=== PATIENT | female | born 1960 | race Caucasian/White ===

== ENCOUNTER 2016-09-30 13:13 | Observation (INO) | payer MEDICARE, MEDICAID ==
[2016-09-30] VITALS (8 sets, daily range): BP systolic 100–120; BP diastolic 49–73; PULSE 60–96; RESP 16–18; O2SAT 96–99
[~2016-09-30] VITALS: Ht 157.5 cm; Wt 85.2 kg
[2016-09-30] MEDS ORDERED: 0.9% Sodium Chloride 1,000 ML IV ONE (13:33)
--- NOTE | 2016-09-30 13:37 | ED.REPORT ---
HPI-General Illness Date of Service Sep 30, 2016 ED Provider: Hiral Weeks MD Patient is a 56 year old female with a history of diabetes who presents to the ED via EMS due to two syncopal episodes just prior to arrival. Per EMS, the patient was playing softball and then when they were trying to get a line put in her, she had another syncopal episode while in supine position. EMS reports that the patient did not have any post-ictal movements after the episode. The patient complains of abdominal pain, nausea and headache. She denies chest pain , shortness of breath, dizziness or lightheadedness. The patient states that her last bowel movement was a week ago but this is normal for her. Nursing Notes Stated Complaint: SYNCOPE Chief Complaint: Dysrhythmia/Cardiac Nursing Notes Reviewed: Yes Allergies: Coded Allergies: No Known Allergies (Unverified , 09/30/16) General Time Seen by MD: 13:29 Chief Complaint Other (syncope) Hx Obtained From: Patient Arrived By: Ambulance Sudden in Onset?: Yes Onset Occurred: Just prior to arrival Location: : Abdomen Quality: Painful Severity: Current: Moderate Similar Sx Previous: No Past Medical History Past Medical History Reports: Diabetes mellitus Smoking History Unknown if Ever Smoker Ambulatory Status Independent Review of Systems Full Review of Systems Constitutional: Denies: Chills, Fever Respiratory: Denies: Non-productive cough, Shortness of breath Cardiovascular: Denies: Chest pain GI: Reports: Abdominal pain, Nausea Skin: Denies Itching, Denies Rash Neurologic: Reports: Headache, Syncope, Denies: Dizziness, Lightheaded, Numbness, Weakness Complete sys rev & neg: except as marked. Physical Exam Vital Signs Vital Signs Date Time Temp Pulse Resp B/P Pulse Ox O2 Delivery O2 Flow Rate FiO2 09/30/16 13:37 36.8 96 18 120/62 98 Room Air Initial VS: Reviewed General/Constitutional: Awake, Alert Head / Eyes: Atraumatic, Normocephalic, PERRL, EOMI Neck: Atraumatic, Supple, Full range of motion Respiratory / Chest: Atraumatic, Breath sounds NL, Breath sounds = bilat, No respiratory distress CARDIO: rapid heart rate with occasional irregularities Abdomen: Atraumatic, Soft, BS normoactive Bowel Sounds / Distention: Positive: Distention mild Skin: Atraumatic, Color NL, No rash, Warm, Dry Neurologic: Oriented X3, Speech NL, No motor deficits, No sensory deficits Psychiatric: Affect NL, Mood NL Interpretation & Diagnostics Lab Results Interpretation Result Diagram: 09/30/16 1340 09/30/16 1340 Test 09/30/16 13:40 09/30/16 15:23 White Blood Count 6.9th/mm3 (3.8-10.1) Red Blood Count 4.87mil/mm3 (3.90-5.20) Hemoglobin 13.8g/dL (12.0-15.6) Hematocrit 42.8% (35.0-46.0) Mean Corpuscular Volume 87.9fL (81-100) Mean Corpuscular Hemoglobin 28.3pg (27.0-35.0) Mean Corpuscular Hemoglobin Concent 32.2% (32.0-37.0) Red Cell Distribution Width 14.3% (12.3-15.4) Platelet Count 210bil/L (150-400) Neutrophils (%) (Auto) 69.2% (40-74) Lymphocytes (%) (Auto) 22.6% (14-46) Monocytes (%) (Auto) 6.4% (4-12) Eosinophils (%) (Auto) 1.4% (0-5) Basophils (%) (Auto) 0.1% (0-3) Sodium Level 141mEq/L (134-144) Potassium Level 4.1mEq/L (3.5-5.2) Chloride Level 105mEq/L (97-108) Carbon Dioxide Level 20mmol/L (18-29) Blood Urea Nitrogen 19mg/dL (6-24) Creatinine 1.11mg/dL (0.57-1.00) Estimat Glomerular Filtration Rate 73mL/min (>59) Glucose Level 94mg/dL (60-99) Calcium Level 9.2mg/dL (8.5-10.1) Magnesium Level 1.8mg/dL (1.6-2.6) Total Bilirubin 0.2mg/dL (0.0-1.2) Aspartate Amino Transf (AST/SGOT) 23U/L (0-50) Alanine Aminotransferase (ALT/SGPT) 17U/L (0-32) Alkaline Phosphatase 122U/L (25-150) Troponin T < 0.010ug/L (0.0-0.011) Pro-B-Type Natriuretic Peptide 127.9pg/mL (0-287) Total Protein 7.7g/dL (6.4-8.4) Albumin 4.3g/dL (3.4-5.0) Hold Urine Received (Received) ECG Interpretation ECG Interpretation: low voltage, precordial leads abnormal R-wave progression, early transition borderline T abnormalities, diffuse leads Time: 14:30 Interpreted by: ED physician Normal ECG Interpretation: Normal rate (74), Normal sinus rhythm X-Ray Chest Interpretation Chest Xray Interpretation: IMPRESSION: No acute disease Dictated by: Jose Alfredo Gomez M.D. on 09/30/2016 at 15:01 Approved by: Jose Alfredo Gomez M.D. on 09/30/2016 at 15:03 Interpretation / Wet Read by: Interpret - Radiologist Re-Eval/Medical Decision Med Decision/Clinical Course 56-year-old woman who is participating [employer] today presumed diagnosis of Down syndrome. Doing very well got hot felt some heart palpitations. Had a syncopal episode. Medics were called there was no post ictal phase there is no describe seizure-like activity. Upon arrival medics noted another 20 to 32nd syncopal episode while she was supine. She was not hooked up to monitors at the time blood sugar was 95. Was transported for further evaluation. She is having multiple PVCs but she is aware that she has had these before Time of Eval: 14:54 Re-Evaluation/Progress Note: Discussed plan for admit. Patient understands and agrees to plan. All questions were addressed. Consultation : Consulted With: Hospitalist Call Returned at: 15:46 Marine Equipment Test Engineer: Agrees with eval, Agrees with plan, Accepts admit Note: Dr De Jesus Counseled Regarding: Diagnosis, Lab results, Need for admission Discharge & Departure Primary Impression: Syncope Syncope type: unspecified Qualified Code: R55 - Syncope and collapse Disposition: ADMITTED TO HOSPITAL Discharge Condition All VS Reviewed: Yes Condition: Stable Referrals: OTHER,PHYSICIAN (PCP) (Family) Scribe Attestation Portions of this note were transcribed by Lolis Ludwig. I, Dr. Weeks personally performed the history, physical exam and medical decision-making; I reviewed and confirmed the accuracy of the information in the transcribed note. Signed: Sonja Cisneros, 09/30/2016 Hiral Weeks MD Sep 30, 2016 13:36 CORONA BANEGAS Sep 30, 2016 13:43 Nazanin Ludwig Sep 30, 2016 15:08
[2016-09-30 13:52] LABS: BASOPHILS % (AUTO) 0.1 % (0-3); EOSINOPHILS % (AUTO) 1.4 % (0-5); MONOCYTES % (AUTO) 6.4 % (4-12); Mean Corpuscular Hemoglobin 28.3 pg (27.0-35.0); Mean Corpuscular Volume 87.9 fL (81-100); NEUTROPHILS % (AUTO) 69.2 % (40-74); Platelet Count 210 bil/L (150-400)
[2016-09-30 14:06] LABS: TROPONIN T < 0.010 ug/L (0.0-0.011)
[2016-09-30 14:14] LABS: Magnesium 1.8 mg/dL (1.6-2.6)
--- NOTE | 2016-09-30 15:04 | DRSVH ---
PROCEDURE: X-RAY CHEST ONE VIEW, PORTABLE ([id number]) INDICATIONS: syncope TECHNIQUE: One view of the chest was acquired. COMPARISON: None. FINDINGS: Surgical changes and devices: None. Lungs and pleura: No pleural effusions or pneumothorax. Lungs are clear. Mediastinum: Mediastinal contours appear normal. Heart size is normal. Bones and chest wall: No suspicious bony lesions. Overlying soft tissues appear unremarkable. IMPRESSION: No acute disease Dictated by: Jose Alfredo Gomez M.D. on 09/30/2016 at 15:01 Approved by: Jose Alfredo Gomez M.D. on 09/30/2016 at 15:03
[2016-09-30] MEDS: 0.9% Sodium Chloride 1,000 ML IV SCH (15:36)
[2016-09-30] MEDS ORDERED: Ondansetron 2 mg/mL 2 mL Inj IVPUSH PRN (15:40)
[2016-09-30] MEDS ORDERED: Sodium Biphos-Phos 133 mL Enema RECTAL PRN (16:15)
[2016-09-30] MEDS ORDERED: Sodium Biphos-Phos 133 mL Enema RECTAL ONE (16:15)
--- NOTE | 2016-09-30 16:23 | PCM.HPMED ---
Subjective Date of Service Sep 30, 2016 Primary Provider: Admitting Physician: Malik De Jesus MD Primary Care Physician: Candelario Flores MD Attending Physician: Malik De Jesus MD Chief Complaint: 2 syncopal episodes History of Present Illness: 56-year-old female with known seizure disorder not on AEDs, diabetes on insulin , depression, anxiety disorder, chronic PVCs, IBS, presenting after episode of syncope today. 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 While she was playing, patient suddenly had blackout. Patient denied having chest pain or difficulty breathing, dizziness, palpitation prior to syncope. 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 Patient remembered she fell, they put her at the bench. patient noticed neck pain and diffuse headache, also noticed abdominal cramping and nausea. Did not vomit. He denied having urination, tongue bite, defecation. While en route to hospital. EMS reported 20-30s sec of loss of consciousness without seizure activities while on supine position. ROS: Patient was on the a lot of stress recently as her mother is critically ill , in ICU at outside hospital. Patient also has chronic constipation, contributed from IBS. last BM one week ago. pt denied fever, chills, cough, sputum. Of note, patient follows at [facility] for seizure d/o. last seen 3days ago discussed about last seizure episode in August she had.However , pt was not recommended to take AEDs. cannot remember the details what his recommendation was. pt also had breakfast this morning, injected her humalog this AM, reported glucose was 96 at the scene. Patient has a good appetite but on a diet trying to her weight, lost 20lbs since may deliberately. ED VS stable blood pressure 120s, 96, 18, 98% on RA, afebrile. labs were unremarkable. EKG showed NSR. pt was given 1liter bolus Review of Systems: Pertinent positives as noted in history of present illness. All other systems were reviewed and are negative Allergies Coded Allergies: No Known Allergies (Unverified , 09/30/16) Home Medications Humalog 5-4 units twice a day Medications for depression and anxiety and sleep PMH As described above in history of present illness Surgical History Cholecystectomy Tubal ligation Family History Father had colon cancer Mother had hypertension Social History Smoking Status: Unknown if Ever Smoker Additional Information Probably lives with ex-, denied any toxic habits Exam Vital Signs Vital Sign - Last Date Time Temp Pulse Resp B/P Pulse Ox O2 Delivery O2 Flow Rate FiO2 09/30/16 13:37 36.8 96 18 120/62 98 Room Air Exam NAD, comfortably laying down on the bed no JVD, MMM, no LAD RRR, nl s1, s2 no mrg CTAB, no w,c S,ND,NT,normoactive BS+ warm, no edema, pulses 2/2 Neuro:speech coherent, fluent, AAOx3 PERRLA, EOMI, symmetric face, no uvulae tongue deviation, able shrug shoulders equally able rotate neck equally on both sides motor 5/5 throughout, sensory intact to dull touch Lab and Diagnostics Result Diagram: 09/30/16 1340 09/30/16 1340 Assessment & Plan Acute, active Witnessed syncopal episode x2, POA, although patient reported seizure-like activities, which was contributed to second episode of syncope. It is possible that patient had a syncope or brief seizure episode from heat stroke given hx pt temp mildly elevated. Patient only has history of PVCs but no higher degree of blocks or ventricular arrhythmias. No cardiac rosales done in the past. Patient was not hypoglycemic or hyperglycemic. -will monitor in house, neurocheck q2h-4h, -telemetry, get TTE to see valvular dz -IVF 100cc/hr, -carotid US -trend trop one more. IBS-C, POA, no BM>1wk, active cramps from severe ileus -aggressive bowel regimen, enema as needed -follow up with regular GI on d/c Chronic, stable DM, glc qhs, [id number] qhs for now depression, anxiety d/o, resume home med ?seizure d/o, will get more information from if pt remains in house until Sunday Dispo: Patient is admitted under observation status with expectation that she will be discharged within 24-48 hours, diet:general dvt ppx:LMWH Full code Time spent 65min Malik De Jesus MD Sep 30, 2016 16:23
[2016-09-30] MEDS: Polyethylene Glycol (PEG) 17 Gm Powder PO SCH ×2 (18:12→20:30)
--- NOTE | 2016-09-30 18:48 | NUR ---
Transfer/Bowel Medication Pt. arrived to room 3001 [facility] from the ER at about 1700, report given by telephone by Amrita Chavez RN. Pt. arrived in no apparent distress and ambulated to her bed. Pt. stated feeling some slight dizziness and c/o headache that had been persistent HOSPITALITY RECRUITER. PRN Tylenol was given and upon reassessment Pt. stated headache decreasing. Admit interventions completed except med. reconciliation, will let next RN shift know. Pt. did have a BM after the fleet enema was given, hard and large, using BSC with SBA.
--- NOTE | 2016-09-30 19:00 | DRSVH ---
PROCEDURE: X-RAY ABDOMEN, ONE VIEW ([id number]) INDICATIONS: ileus TECHNIQUE: One view of the abdomen acquired. COMPARISON: None. FINDINGS: Surgical changes and devices: None. Bowel: Bowel gas pattern is nonobstructive. Moderate stool is present Soft tissues: No suspicious abdominal calcifications. Visualized solid organ contours appear normal in size. Bones: No suspicious bony lesions. IMPRESSION: No bowel obstruction. Moderate stool Dictated by: Jose Alfredo Gomez M.D. on 09/30/2016 at 18:57 Approved by: Jose Alfredo Gomez M.D. on 09/30/2016 at 18:58
--- NOTE | 2016-09-30 19:56 | NUR ---
DEANA explained and signed. Copy of DEANA and Medicare self administered medication information given to pt.
[2016-09-30] MEDS ORDERED: Insulin GLARgine 100 Unit/mL Syringe SUBQ SCH (21:00)
[2016-09-30] MEDS ORDERED: LORA-303 PO (21:50)
[2016-09-30] MEDS ORDERED: TRAZ300T3 PO (21:50)
[2016-09-30] MEDS ORDERED: LORazepam 1 mg Tablet PO PRN (21:55)
[2016-10-01] VITALS (7 sets, daily range): BP systolic 110–137; BP diastolic 65–79; PULSE 60–90; RESP 16–18; O2SAT 95–97
[2016-10-01] MEDS: 0.9% Sodium Chloride 1,000 ML IV SCH (03:28)
[2016-10-01] MEDS: Polyethylene Glycol (PEG) 17 Gm Powder PO SCH (07:43)
[2016-10-01] MEDS ORDERED: LORazepam 1 mg Tablet PO PRN (10:20)
--- NOTE | 2016-10-01 11:19 | PCM.DIMED ---
Discharge Instructions Date of Service Oct 01, 2016 Dates of Hospitalization Sep 30, 2016 at 15:26 Discharge Diagnosis Discharge Diagnosis Probable syncopal episode in the setting of heat stroke, possible orthostatic hypotension, dehydration Diet Discharge Diet: No restrictions Activity Discharge Activity: No restrictions Call your provider Call your provider for: Shortness of breath Patient Instructions Patient Instructions You were hospitalized after the episode of syncope. Although there was a concern for seizures. There was no seizure activity observed during the hospitalization. Further workups didn't reveal any abnormalities on your heart functions and irregular heart rhythms which could trigger your episode. Please follow-up with Neurologist if this episode happened again Please hydrate yourself enough with water especially prior to vigorous exercise Please follow up with your Primary doctor on this Sunday as scheduled. Please request for Echocardiogram and Carotid Ultrasound result from medical record department Follow-up Provider: Kelechi Richardson MD Follow-up with PCP in: 4 weeks Provider: Candelario Flores MD Follow-up in: 2 weeks Malik De Jesus MD Oct 01, 2016 11:19
--- NOTE | 2016-10-01 14:12 | NUR ---
Social Work-initial assessment/readiness for discharge: Data:See initial assessment. Pt is a 56 y/o female who was admitted on 09/30/16 for syncope per H&P. Pt's insurance is [facility] and [facility] and PCP is Earl Flores MD. EMR Reviewed. Pt's readmission score is 3-high risk. SW met with pt at bedside, SW role explained. Pt is alert and oriented x3. Pt resides at home with her ex- in an apartment in [place]. Pt does not drive and uses a fww at baseline. pt has no HH or SNF history. Pt has [facility] caregivers a couple times a week, but pt cannot remember her CM's name. Pt has no detention care insurance or VA benefits. SW discussed DPOA/ advanced directive, pt has not completed this, information provided. SW provided pt with discharge planning checklist booklet and encouraged pt to call with any questions, phone number provided. Pt confirms her family will provide transport home. No anticipated discharge needs. SW will continue to follow if needs arise. Assessment:pt who is independent at baseline. Plan:Pt to discharge home when medically stable via POV. No anticipated discharge needs. SW will continue to follow if needs arise. RASHEED Diamond Addendum: 10/01/16 at 1415 by VINEET GONZALES Amended: Links added.
--- NOTE | 2016-10-01 16:36 | PCM.DC.MED ---
Discharge Summary Date of Service Oct 01, 2016 Dates of Hospitalization Date of Hospital Admission Sep 30, 2016 at 15:26 Date of Discharge: Oct 01, 2016 Providers: Admitting Physician: Malik De Jesus MD Primary Care Physician: Candelario Flores MD Attending Physician: Malik De Jesus MD Diagnosis at Time of Discharge Diagnosis at Time of Discharge acute dx Probable syncopal episode in the setting of heat stroke, possible orthostatic hypotension, dehydration IBS-C Chronic dx DM Depression, anxiety d/o questionable seizure d/o Procedures XRay, CTs & MRIs PROCEDURE: X-RAY ABDOMEN, ONE VIEW ([id number]) INDICATIONS: ileus TECHNIQUE: One view of the abdomen acquired. COMPARISON: None. FINDINGS: Surgical changes and devices: None. Bowel: Bowel gas pattern is nonobstructive. Moderate stool is present Soft tissues: No suspicious abdominal calcifications. Visualized solid organ contours appear normal in size. Bones: No suspicious bony lesions. IMPRESSION: No bowel obstruction. Moderate stool Dictated by: Jose Alfredo Gomez M.D. on 09/30/2016 at 18:57 Approved by: Jose Alfredo Gomez M.D. on 09/30/2016 at 18:58 Brief History HPI obtained on 09/30 56-year-old female with known seizure disorder not on AEDs, diabetes on insulin , depression, anxiety disorder, chronic PVCs, IBS, presenting after episode of syncope today. 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 While she was playing, patient suddenly had blackout. Patient denied having chest pain or difficulty breathing, dizziness, palpitation prior to syncope. As per the patient, patient was told that she had 40 seconds of "seizure", temperature was 99.2F per her cricket coach. Patient remembered she fell, they put her at the bench. patient noticed neck pain and diffuse headache, also noticed abdominal cramping and nausea. Did not vomit. He denied having urination, tongue bite, defecation. While en route to hospital. EMS reported 20-30s sec of loss of consciousness without seizure activities while on supine position. ROS: Patient was on the a lot of stress recently as her mother is critically ill , in ICU at outside hospital. Patient also has chronic constipation, contributed from IBS. last BM one week ago. pt denied fever, chills, cough, sputum. Of note, patient follows at [facility], [place] for seizure d/o. last seen 3days ago discussed about last seizure episode in August she had.However , pt was not recommended to take AEDs. cannot remember the details what his recommendation was. pt also had breakfast this morning, injected her humalog this AM, reported glucose was 96 at the scene. Patient has a good appetite but on a diet trying to her weight, lost 20lbs since may deliberately. ED VS stable blood pressure 120s, 96, 18, 98% on RA, afebrile. labs were unremarkable. EKG showed NSR. pt was given 1liter bolus Hospital Course Acute dx Witnessed syncopal episode x2, pt was monitored closely during hospitalization. No episode of seizures or syncope was noted. Patient underwent echocardiogram and carotid ultrasound. Although patient reported seizure-like activities, it was unlikely seizures, it' s possible that patient had a syncope from heat stroke given hx pt temp mildly elevated and also be associated with orthostatic hypotension and dehydration. Patient only has history of PVCs but no higher degree of blocks or ventricular arrhythmias. Telemetry showed no episodes of concerning arrhythmias. Patient was also not hypoglycemic or hyperglycemic. Given stable clinical condition, orthostatic vitals were normal. Patient was ambulating unsteady gait, deemed safe for d/c. Plan is to follow-up with her primary doctor on next Sunday, encouraged to request the report of carotid ultrasound and echocardiogram. IBS-C, POA, no BM>1wk, active cramps from severe ileus. Resolved with aggressive bowel regimen Chronic dx DM, stable on lantus 5units Depression, anxiety d/o, resume home med ?seizure d/o, pt was encouraged to follow up if pt develops more episodes. Exam Vital Signs (Last) Date Time Temp Pulse Resp B/P Pulse Ox O2 Delivery O2 Flow Rate FiO2 10/01/16 15:25 64 114/71 Room Air 114/72 115/74 10/01/16 14:20 36.8 16 97 Exam pt was examined on the day of d/c ambulating on steady gait Test 09/30/16 13:40 09/30/16 15:23 09/30/16 21:25 White Blood Count 6.9th/mm3 (3.8-10.1) Red Blood Count 4.87mil/mm3 (3.90-5.20) Hemoglobin 13.8g/dL (12.0-15.6) Hematocrit 42.8% (35.0-46.0) Mean Corpuscular Volume 87.9fL (81-100) Mean Corpuscular Hemoglobin 28.3pg (27.0-35.0) Mean Corpuscular Hemoglobin Concent 32.2% (32.0-37.0) Red Cell Distribution Width 14.3% (12.3-15.4) Platelet Count 210bil/L (150-400) Neutrophils (%) (Auto) 69.2% (40-74) Lymphocytes (%) (Auto) 22.6% (14-46) Monocytes (%) (Auto) 6.4% (4-12) Eosinophils (%) (Auto) 1.4% (0-5) Basophils (%) (Auto) 0.1% (0-3) Sodium Level 141mEq/L (134-144) Potassium Level 4.1mEq/L (3.5-5.2) Chloride Level 105mEq/L (97-108) Carbon Dioxide Level 20mmol/L (18-29) Blood Urea Nitrogen 19mg/dL (6-24) Creatinine 1.11mg/dL (0.57-1.00) Estimat Glomerular Filtration Rate 73mL/min (>59) Glucose Level 94mg/dL (60-99) Calcium Level 9.2mg/dL (8.5-10.1) Magnesium Level 1.8mg/dL (1.6-2.6) Total Bilirubin 0.2mg/dL (0.0-1.2) Aspartate Amino Transf (AST/SGOT) 23U/L (0-50) Alanine Aminotransferase (ALT/SGPT) 17U/L (0-32) Alkaline Phosphatase 122U/L (25-150) Pro-B-Type Natriuretic Peptide 127.9pg/mL (0-287) Total Protein 7.7g/dL (6.4-8.4) Albumin 4.3g/dL (3.4-5.0) Hold Urine Received (Received) Troponin T 0.010ug/L (0.0-0.011) Discharge Medications Discharge Medications Trazodone (Trazodone) 300 Mg Tablet 300 MG PO HS (Reported) As needed Lorazepam (Ativan) 1 Mg Tablet 1 MG PO HS PRN PRN For Insomnia (Reported) Followup Plan Disposition: home Discharge Diet: No restrictions Discharge Activity: No restrictions Patient Instructions You were hospitalized after the episode of syncope. Although there was a concern for seizures. There was no seizure activity observed during the hospitalization. Further workups didn't reveal any abnormalities on your heart functions and irregular heart rhythms which could trigger your episode. Please follow-up with Neurologist if this episode happened again Please hydrate yourself enough with water especially prior to vigorous exercise Please follow up with your Primary doctor on this Sunday as scheduled. Please request for Echocardiogram and Carotid Ultrasound result from medical record department Follow-up Provider: Kelechi Richardson MD Follow-up with PCP in: 4 weeks Provider: Candelario Flores MD Follow-up in: 2 weeks Time spent 65min Malik De Jesus MD Oct 01, 2016 16:36
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
--- NOTE | 2016-10-02 08:23 | DRSVH ---
[facility] [address] [place] [address] Echocardiogram Report Name: MICA MARC LStudy Date: 10/01/2016 Height: 62 in Hospital Exam Location: [facility] Weight: 187 lb Gender: Female BSA: 1.9 m2 : 1960 Age: 56 yrs BP: 120/72 mmHg Reason For Study: Syncope Ordering Physician: Performed By: [facility] Interpretation Summary DO NOT FINALIZE-CONTRAST USED. Sinus rhythm with periodic sinus pauses The left ventricle is normal in size. The right ventricle grossly appears normal in size with probable normal systolic function. The right ventricular systolic pressure is estimated at 21 mmHg assuming a right atrial pressure of 3 mm Hg. No other echocardiographic abnormalities seen. No obvious cause for the patients syncope. Procedure: A two-dimensional transthoracic echocardiogram with color flow and Doppler was performed. The study quality was technically difficult. A contrast injection of Definity was performed to improve assessment of LV function. There is no prior echocardiogram noted for this patient. The heart rate ranged between 42-77 bpm during the study. The patient had frequent PVCs during the exam. Sinus rhythm with periodic sinus pauses. Left Ventricle: The left ventricle is normal in size. There is normal left ventricular wall thickness. The ejection fraction is estimated to be 55-60%. There are no obvious focal wall motion abnormalities noted but poor endocardial definition reduces the sensitivity for the detection of such. Assessment of diastolic parameters indicates normal left ventricular diastolic function and normal filling pressures. Right Ventricle: The right ventricle grossly appears normal in size with probable normal systolic function. Atria: The left atrium grossly appears normal in size. Right atrial size is normal. There is no Doppler evidence for an interatrial shunt. Mitral Valve: The mitral valve is normal in structure and function. There is trace mitral regurgitation. Aortic Valve: The aortic valve is grossly normal. There is no aortic valve stenosis. No aortic regurgitation is present. Tricuspid Valve: The tricuspid valve leaflets are thin and pliable. There is a trace or physiologic amount of tricuspid regurgitation. The right ventricular systolic pressure is estimated at 21 mmHg assuming a right atrial pressure of 3 mm Hg. Pulmonic Valve: The pulmonic valve is not well visualized. Great Vessels: The aortic root is normal size. The ascending aorta is normal in size. The aortic arch is normal in size. The IVC is of normal diameter and collapses greater than 50% with a sniff. This suggests a low right atrial pressure of 3 mm Hg. Pericardium/ Pleura There is no pericardial effusion. There is no pleural effusion. MMode/2D Measurements & Calculations LVIDd: 4.7 cm RA long axis LVOT diam: 2.0 cm LVIDs: 2.7 cm LA A4 area: 17.0 cm AoV Opening FS: 42.7 % LA length (vol) RA area EPSS: 0.33 cm Ao root diam IVSd: 0.68 cm IVC diam: 1.9 cm : 9.7 cm LVPWd: 0.84 cm RA vol Aortic Jxn: 2.2 cm : 20.6 ml asc Aorta Diam RA : 11.1 mm2 Ao Arch Diam (Prox Trans): 2.3 cm LV hernandes. diameter/BSA LV sys. diameter/BSA RVD1 (basal) (cm/m^2): 2.5 (cm/m^2): 1.5 Doppler Measurements & Calculations Ao V2 max: 98.4 cm/secMV E max carlos alberto MV E/A: 1.1 TR max carlos alberto Ao max P.9 mmHg : 116.3 cm/sec Med Peak E' Carlos Alberto : 210.9 cm/sec Ao mean P.9 mmHg MV A max carlos alberto TR max PG LVOT Max Carlos Alberto : 108.4 cm/sec E/E' med: 11.4 : 17.8 mmHg : 84.6 cm/sec PA V2 max : 103.2 cm/sec MARLEN(I,D): 2.6 cm PA mean PG sev ratio: 0.81 PA Accel Time : 0.15 sec MV dec time: 0.25 sec Ao V2 mean LV V1 max PG PA V2 mean : 64.3 cm/sec : 70.8 cm/sec Ao V2 VTI: 20.5 cmLV V1 VTI: 16.6 cm MARLEN(V,D): 2.8 cm2 MARLEN indexed to BSA (cm^2/m^2): 1.4 Reading Physician:06:14 PM
== END 2016-10-01 19:00 | disposition home or self-care (01) ==
LOC: EDUNIT# 13:13 → EDBD 13:13 → SED 13:13 → MPC 15:26
PROVIDERS: ADMIT Internal Medicine; ATTEND Internal Medicine
DX: R55 Syncope and collapse (principal); E11.9 Type 2 diabetes mellitus without complications; I49.3 Ventricular premature depolarization; F32.9 Major depressive disorder, single episode, unspecified; F41.9 Anxiety disorder, unspecified; G40.909 Epilepsy, unspecified, not intractable, without status epilepticus; K58.1 Irritable bowel syndrome with constipation; Z79.4 Long term (current) use of insulin
CPT/HCPCS: 36415; 71010; 74000; 80053; 83735; 83880; 84484; 85025; 93005; 96361; 96374; 99285; C8929; G0378; J1650; J1815; J2405; J7030; Q9957